=== PATIENT | female | born 1980 | race Two or more races ===

== ENCOUNTER 2018-10-24 12:42 | Emergency (ER) | payer MEDICAID ==
[~2018-10-24] VITALS: Ht 175.3 cm; Wt 128.4 kg
[2018-10-24 14:06] LABS: Basophils # (auto) 0 uL; Basophils % (auto) 0.5 % (0.0-2.0); Monocytes # (auto) 0.5 uL; Neutrophils # (auto) 4.9 uL; White Blood Cell 8.3 10^3/uL (4.4-10.8)
[2018-10-24 14:08] LABS: Eosinophils # (auto) 0.3 uL; Eosinophils % (auto) 4.1 % (0.0-7.0); Hematocrit 36.6 % (36.0-46.0); Lymphocytes # (auto) 2.6 uL; Lymphocytes % (auto) 31.4 % (10.0-50.0); Mean Corpuscular Hemoglobin 25.2 pg (28.0-32.0); Mean Corpuscular Hgb Conc. 32.7 g/dL (32.0-36.0); Mean Corpuscular Volume 77.2 fL (80.0-100.0); Monocytes % (auto) 5.5 % (0.0-12.0); Neutrophils % (auto) 58.5 % (37.0-80.0); Nucleated Red Blood Cells % 0.1 %; Platelet Count (auto) 227 10^3/uL (140-450); Red Blood Cells 4.74 10^6/uL (4.0-5.20); Red Cell Distribution Width 15.4 % (11.8-14.3)
[2018-10-24 14:20] LABS: Albumin 3.5 g/dL (3.4-5.0); Calcium 8.3 mg/dL (8.5-10.1); Potassium 3.7 mmol/L (3.5-5.1)
[2018-10-24 14:25] LABS: Bilirubin, Total 0.2 mg/dL (0.2-1.0)
[2018-10-24 14:58] LABS: BUN/Creatinine Ratio 13.2
[2018-10-24 15:54] LABS: Urine Bacteria FEW /hpf (None Seen); Urine Blood 1+ /uL (Negative); Urine Specific Gravity 1.005 (1.001-1.035); Urine WBC 1 /hpf (0 - 5)
[2018-10-24 17:00] VITALS: BP 145/87
== END 2018-10-24 17:03 | disposition home or self-care (01) ==
LOC: ER 12:42
DX: R10.32 Left lower quadrant pain (principal); N93.9 Abnormal uterine and vaginal bleeding, unspecified; M54.9 Dorsalgia, unspecified; R10.2 Pelvic and perineal pain; F12.90 Cannabis use, unspecified, uncomplicated
CPT/HCPCS: 36415; 80053; 81001; 81025; 85025

== ENCOUNTER 2019-02-25 16:00 | Emergency (ER) | payer MEDICAID, OTHER ==
[~2019-02-25] VITALS: Ht 175.3 cm; Wt 125.2 kg
[2019-02-25 19:14] VITALS: BP 120/60
[2019-02-25] MEDS ORDERED: methylPREDNISolone SOD SUCC 125 MG/2 ML VL IM ONE (19:15)
[2019-02-25] MEDS ORDERED: KETOROLAC TROMETH 60MG/2ML VIAL IM ONE (19:15)
== END 2019-02-25 20:23 | disposition home or self-care (01) ==
LOC: ER 16:02
DX: S33.5XXA Sprain of ligaments of lumbar spine, initial encounter (principal); M62.830 Muscle spasm of back; M48.061 Spinal stenosis, lumbar region without neurogenic claudication; X50.9XXA Other and unspecified overexertion or strenuous movements or postures, initial encounter; Y93.89 Activity, other specified; Y92.89 Other specified places as the place of occurrence of the external cause; Y99.8 Other external cause status
CPT/HCPCS: 72131; 81025; 96372; 99284; J1885; J2930

== ENCOUNTER 2019-07-22 21:17 | Emergency (ER) | payer MEDICAID, OTHER ==
[~2019-07-22] VITALS: Ht 175.3 cm; Wt 131.5 kg
[2019-07-22 21:49] LABS: Eosinophils # (auto) 0.3 uL; Hemoglobin 12.7 g/dL (12.2-16.2); Mean Corpuscular Hemoglobin 26.4 pg (28.0-32.0)
[2019-07-22 21:54] LABS: Basophils # (auto) 0 uL; Basophils % (auto) 0.2 % (0.0-2.0); Eosinophils % (auto) 3.3 % (0.0-7.0); Lymphocytes % (auto) 31.2 % (10.0-50.0); Mean Corpuscular Hgb Conc. 33.5 g/dL (32.0-36.0); Mean Corpuscular Volume 78.9 fL (80.0-100.0); Monocytes # (auto) 0.6 uL; Neutrophils # (auto) 5.7 uL; Neutrophils % (auto) 59.3 % (37.0-80.0); Platelet Count (auto) 224 10^3/uL (140-450); Red Blood Cells 4.81 10^6/uL (4.0-5.20); Red Cell Distribution Width 16.1 % (11.8-14.3); White Blood Cell 9.7 10^3/uL (4.4-10.8)
[2019-07-22 22:05] LABS: Albumin 3.5 g/dL (3.4-5.0); BUN/Creatinine Ratio 10.8; Calcium 8.9 mg/dL (8.5-10.1); Potassium 3.9 mmol/L (3.5-5.1)
[2019-07-22 22:07] LABS: Bilirubin, Total 0.2 mg/dL (0.2-1.0); Total Protein 7.2 g/dL (6.4-8.2)
[2019-07-22 22:29] LABS: INR < 0.93 (0.9-1.15); Partial Thromboplastin Time 24.9 sec (23.64-32.05)
[2019-07-22 22:30] LABS: Urine Bacteria NONE SEEN /hpf (None Seen); Urine Blood Negative /uL (Negative); Urine Mucus FEW (None Seen); Urine Specific Gravity 1.003 (1.001-1.035); Urine WBC <1 /hpf (0 - 5)
[2019-07-23] MEDS ORDERED: SODIUM CHLORIDE 0.9% 1,000 ML IV ONE (00:30)
[2019-07-23] MEDS ORDERED: ACETAMINOPHEN 500 MG TAB PO ONE (00:30)
[2019-07-23 03:00] VITALS: BP 117/73
== END 2019-07-23 04:42 | disposition home or self-care (01) ==
LOC: ER 21:23
DX: O20.0 Threatened abortion (principal); O99.355 Diseases of the nervous system complicating the puerperium; Z3A.01 Less than 8 weeks gestation of pregnancy
CPT/HCPCS: 36415; 76801; 80053; 81001; 81025; 84702; 85025; 85610; 85730; 99284; J7030

== ENCOUNTER 2019-11-13 17:12 | Observation (INO) | payer MEDICAID ==
[~2019-11-13] VITALS: Ht 175.3 cm; Wt 119.7 kg
[2019-11-13] MEDS ORDERED: PREN-96 PO (18:07)
== END 2019-11-13 18:34 | disposition home or self-care (01) | DRG 566 ==
LOC: LDRP 17:12
PROVIDERS: ADMIT Obstetrics & Gynecology; ATTEND Obstetrics & Gynecology
DX: O26.892 Other specified pregnancy related conditions, second trimester (principal); R10.9 Unspecified abdominal pain; Z3A.21 21 weeks gestation of pregnancy
CPT/HCPCS: 59025; G0378

== ENCOUNTER 2022-08-08 17:08 | Emergency (ER) | payer MEDICAID, OTHER ==
[~2022-08-08] VITALS: Ht 175.3 cm; Wt 120.0 kg
[~2022-08-08 17:08] MED LIST: PREN-96 PO
[2022-08-08] MEDS ORDERED: IBUP800T27 PO (23:25)
[2022-08-08] MEDS ORDERED: KETOROLAC TROMETH 60MG/2ML VIAL IM ONE (23:30)
[2022-08-09 00:05] VITALS: BP 138/80
== END 2022-08-09 00:49 | disposition home or self-care (01) ==
LOC: ER 17:08
DX: G43.909 Migraine, unspecified, not intractable, without status migrainosus (principal)
CPT/HCPCS: 70450; 96372; 99284; J1885